=== PATIENT | male | born 1980 | race African-American/Black ===

== ENCOUNTER → 2019-12-18 | Emergency (ER) | payer MEDICAID, OTHER ==
[~2019-12-18] VITALS: Ht 172.7 cm; Wt 120.0 kg
[2019-12-18 17:06] VITALS: BP 124/83
== END | disposition left against medical advice (07) ==
LOC: ER 16:38
DX: Z53.21 Procedure and treatment not carried out due to patient leaving prior to being seen by health care provider (principal)